=== PATIENT | female | born 1945 | race Asian ===

== ENCOUNTER → 2016-07-19 | Outpatient (CLI) | payer OTHER, MEDICAID ==
--- NOTE | 2016-07-19 17:49 | DX ---
DEXA Bone Mineral Densitometry Clinical Indications: Follow-up osteoporosis. Postmenopausal, parent with hip fracture, personal hist ory of left wrist fracture Comparison: 10/11/2013 Technique: Bone Mineral Densitometry (BMD) by Dual Energy X-Ray Absorptiometry (DEXA) was performed utilizing the Unified Color scanner. The lumbar spine was evaluated in the AP projection. The bilat eral hips and forearm were evaluated in the AP projection. Vertebral fracture assessment was also pe rformed. AP Lumbar Spine: The L2, L3 and L4 vertebral bodies were evaluated. There is a stable L1 compressi on fracture which is excluded. BMD: 0.832 gm/cm2 T-score: -3.1 SD Z-score: -0.6 SD No significant change. AP Left Hip: Total BMD: 0.603 gm/cm2 T-score: -3.2 SD Z-score: -1.0 SD No significant change. AP Right Hip: Neck BMD: 0.554 gm/cm2 T-score: -3.5 SD Z-score: - 1.1 SD No significant change. AP right Forearm, 06/12: BMD: 0.399 gm/cm2 T-score: -5.4 SD Z-score: -3.3 SD Vertebral Fracture Assessment: There is a chronic severe compression deformity of L1 and moderate co mpression of T9. No new compressions have developed.. No prevertebral aortic calcification, significa nt marginal bone spurring, facet arthrosis, or intrinsic vertebral body sclerosis that would effect the accuracy of the lumbar spine BMD measurement. Conclusion: Considering the lowest measured site, the patient has severe osteoporosis. Since the for earm is the lowest measured site, it would be worthwhile to exclude hyperparathyroidism. The ten year FRAX risk for any major osteoporotic fracture , which excludes the risk for a wrist frac ture, is 20.2% and for a hip fracture is 9.1%. According to the recommendations of the National Osteo porosis Foundation, this patient would be a good candidate for bone strengthening pharmacologic inter vention. Consider excluding secondary metabolic causes of bone loss (reported to be present in as many as 30% of patients with normal Z scores). Basic laboratory evaluation might include blood chemistries (calci um, phosphorus, alkaline phosphatase, liver function tests, creatinine, total protein), complete bloo d count, serum 25-OH- vitamin D3 level, 24-hour urine calcium, serum TSH and serum PTH. Targeted l aboratory testing based on individual patient circumstances might include serum electrophoresis (SPEP or UPEP), anti-tissue transglutaminase antibody levels (celiac disease) , serum bone specific alkal ine phosphatase, bone turnover markers (urine, serum) or fibroblast growth factor 23 (FGF 23)(evaluat e for unexplained osteomalacia). If secondary causes are excluded, then consider initiating treatment with a bisphosphonate (such as F osamax, Actonel or Boniva). If the patient is unable to use an oral bisphosphonate, another agent suc h as IV bisphosphonates (Boniva or Reclast), teriparatide (Forteo), a selective estrogen receptor mo dulator (Evista) or Denosumab ( anti RANKL monoclonal antibody) might be considered. If antiresorptive therapy is initiated and if clinically indicated, consider obtaining a baseline and 3 month followup bone resorption marker (NTX, CTX, TRAP5b or Pyridinoline, deoxypyridinoline) to mon itor the therapeutic effect. Supplementing an insufficient diet to achieve total intakes of 1500 mg calcium and 800 International Units of vitamin D daily should be considered. Osteoporosis prevention and treatment begins by modify ing risk factors. The patient should be encouraged to participate in a regular exercise program that includes weightbearing and muscle strengthening regimens, as is clinically appropriate. Recommend follow-up DEXA in one year to assess the efficacy of pharmacologic intervention and/or joan ection of appropriate secondary cause.
== END ==
LOC: BRMIMAGING 10:40
PROVIDERS: ATTEND Family Medicine
DX: M81.0 Age-related osteoporosis without current pathological fracture (principal)

== ENCOUNTER 2016-09-05 17:48 | Emergency (ER) | payer OTHER, MEDICAID ==
[2016-09-05 18:08] VITALS: RESP 16; TEMP 97.5; O2SAT 94
--- NOTE | 2016-09-05 18:34 | UCPHY ---
H & P Time Seen by Provider: 09/05/16 17:57 Patient Type: Established HPI/ROS: This patient was hiking and no EB with her son 2 days prior to arrival and fell landing on her left shoulder. She reports moderate pain since then with significant ecchymosis extending from the proximal humerus to the distal humerus and also toward the pectoralis anteriorly. She is unable to abduct her arm since the injury occurred. Pain increases with movement. No other exacerbating or alleviating factors except for partial improvement with ibuprofen. ROS: She denies any other associated injuries from fall. No head injury, no neck or back pain. No chest or belly pain. No numbness to the affected extremity and 7 point ROS is otherwise negative. Past Medical/Surgical History: Otherwise healthy except for hypercholesterolemia Smoking Status: Never smoked Physical Exam: Physical Exam Vital signs are normal. General: No acute distress HEENT: Atraumatic. Eyes: Pupils equal and react to light. Extraocular motions are intact. Neck: Nontender Back: Nontender Lungs: Clear to auscultation bilaterally. No chest wall tenderness Cardiac: Regular rate and rhythm with no murmur gallop rub Pulses are 2+ and symmetric in the affected extremity. Extremities: Atraumatic normal except for left shoulder Left shoulder: Patient has tenderness and swelling the proximal humerus with ecchymosis extends down to the distal humerus and to the pectoralis anteriorly. No significant pectoralis tenderness. No clavicular or AC joint tenderness. She has significant limitation range of motion of the shoulder due to pain. No gross deformity. No elbow tenderness forearm tenderness or wrist tenderness. Skin: No rash or pallor. Neuro: Alert and oriented x3 with no sensorimotor deficits in the affected extremity Initial differential diagnosis: Proximal humerus fracture, acromial fracture, rotator cuff tear Constitutional: Initial Vital Signs Temperature (C) 36.4 C 09/05/16 18:05 Heart Rate 78 09/05/16 18:05 Respiratory Rate 16 09/05/16 18:05 Blood Pressure 181/80 H 09/05/16 18:05 O2 Sat (%) 94 09/05/16 18:05 O2 Delivery Mode Room Air Allergies/Adverse Reactions: No Known Allergies Allergy (Verified 09/05/16 18:04) Home Medications: Medication Instructions Recorded Fish Oil 05/21/16 Supplements 05/21/16 Ibuprofen 09/05/16 SIMVASTATIN 09/05/16 MDM/Departure - MDM Diagnostics: Shoulder x-ray: Greater tuberosity fracture with minimal displacement by my interpretation, confirmed by radiologist ED Course/Re-evaluation: Patient is placed in a sling. I counseled regarding her greater tuberosity fracture. She will follow up with Orthopedics for further evaluation sometime within the next 5-[address] Mandel will follow up with him Discussion: An isolated fracture without evidence of neurovascular compromise or other complications. No other significant injuries are noted from her fall. - Depart Disposition: Home, Routine, Self-Care Clinical Impression: Fracture of greater tuberosity of humerus Qualifiers: Encounter type: initial encounter Fracture type: closed Fracture alignment: nondisplaced Laterality: left Qualified Code(s): S42.255A - Nondisplaced fracture of greater tuberosity of left humerus, initial encounter for closed fracture Condition: Good Instructions: Arm Fracture in Adults (ED) Additional Instructions: Diagnosis: Greater tuberosity fracture of humerus Plan: Sling Ice Tylenol Follow up with Dr. Manedl your orthopedic doctor Referrals: Ana Hernandez MD [Primary Care Provider] - As per Instructions Deacon Mandel MD [Medical Doctor] - As per Instructions - PQRS PQRS Measurement: 134: Depression screening and followup, PRIME MD-PHQ2 (12 years and older) Over the last 2 weeks, how often have you been bothered by any of the following problems? 1. Feeling down, depressed, or hopeless? 2. Little interest or pleasure in doing things? Patient answered no to both 1 and 2 130: Documentation of medications. Reviewed all patient medications, doses, route and frequency. 226: Do you smoke? [No.] 47: 65 and older: Advanced care planning. Patient has an advanced directive 51: 18 years old and older with diagnosis of COPD, spirometry performance. NA 52: 18 years old and older with COPD and symptoms of COPD or FEV1<60% predicted prescribed a B Agonist. NA
[2016-09-05 18:45] VITALS: BP 148/98; PULSE 76
== END 2016-09-05 18:47 | disposition home or self-care (01) ==
LOC: CED 17:48
DX: S42.255A Nondisplaced fracture of greater tuberosity of left humerus, initial encounter for closed fracture (principal); W01.0XXA Fall on same level from slipping, tripping and stumbling without subsequent striking against object, initial encounter; Y93.01 Activity, walking, marching and hiking; E78.00 Pure hypercholesterolemia, unspecified
CPT/HCPCS: 73030; G0463; 99214-PO

== ENCOUNTER → 2016-09-11 | Outpatient (CLI) | payer OTHER, MEDICAID | LOC: CIMAGING 15:13 | PROVIDERS: ATTEND Orthopaedic Surgery | DX: S42.252D Displaced fracture of greater tuberosity of left humerus, subsequent encounter for fracture with routine healing (principal); S42.212A Unspecified displaced fracture of surgical neck of left humerus, initial encounter for closed fracture | CPT/HCPCS: 73200-PO ==

== ENCOUNTER 2016-09-14 13:25 | Day surgery (SDC) | payer OTHER, MEDICAID ==
[2016-09-14] MEDS ORDERED: LR 1,000 ML IV ONE (14:28)
[2016-09-14] MEDS ORDERED: LIDOCAINE 1% 5 ML SDV ID PRN (14:28)
[2016-09-14] MEDS ORDERED: ceFAZolin 2 GM/DEXTROSE 100 ML IV ONE (14:30)
[2016-09-14] MEDS ORDERED: SKIN ADHESIVE (DERMABOND) 1 EACH TP ONE (14:39)
[2016-09-14] MEDS ORDERED: BUPIVACAINE/EPI 0.25% 30 ML SDV ONE (14:40)
[2016-09-14] MEDS ORDERED: POLYMYXIN B SULFATE 500,000 UNIT/10 ML SYR IRR ONE (14:40)
[2016-09-14] MEDS ORDERED: BACITRACIN 50,000 UNITS/10 ML SYR IRR ONE (14:40)
[2016-09-14] MEDS ORDERED: fentaNYL 100 MCG/2 ML INJ ONE (14:45)
[2016-09-14] MEDS ORDERED: PROPOFOL 200 MG/20 ML VIAL ONE (14:47)
[2016-09-14] MEDS ORDERED: ONDANSETRON 4 MG/2 ML VIAL ONE (15:40)
[2016-09-14] MEDS ORDERED: ROPIVACAINE HCL 150 MG/30 ML INJ ONE (15:40)
[2016-09-14] MEDS ORDERED: DEXAMETHASONE 4 MG/ML VIAL ONE (15:40)
--- NOTE | 2016-09-14 19:30 | GOP ---
[f rep st] OPERATIVE REPORT DATE OF OPERATION: 09/14/2016 SURGEON: Deacon Mandel MD CHAINSTITCH SEAT JOINER: Jelani Powers SA ANESTHESIA: General with block. PREOPERATIVE DIAGNOSIS: Left 3-part proximal humerus fracture. POSTOPERATIVE DIAGNOSIS: Left 3-part proximal humerus fracture. PROCEDURE PERFORMED: 1. Open reduction, internal fixation left 3-part proximal humerus fracture. 2. Rotator cuff repair. FINDINGS: SPECIMENS: None. ESTIMATED BLOOD LOSS: 50 mL. INDICATIONS: This is a 71-year-old female who fell while hiking. She came into my clinic. She had a displaced greater tuberosity fracture, a nondisplaced surgical neck fracture. I defined this bet ter with a CT scan. I discussed operative treatment based on the retraction and external rotation o f her greater tuberosity fracture. I felt would likely have decreased strength, shoulder function, impingement if this was not fixed. We discussed risks and benefits of both operative and nonoperati ve treatment including nerve injury, wound complications, loss of fixation causing a fracture, valerio nued pain, blood loss. She elected to proceed. Informed consent was obtained. All questions were answered. She was marked preoperatively. DESCRIPTION OF PROCEDURE: She was taken to the operating suite. Anesthesia and block were administ ered per Anesthesia. She was given 1 g of Ancef. She was positioned, sterilely prepped draped in n ormal fashion. A time-out was performed verifying site, side, location. And all were in agreement o n the team. The procedure was begun with an anterior incision on the shoulder. I performed a one-third deltoid splitting approach and protected the axillary nerve. I did not detach the deltoid distally. I was able to mobilize under the deltoid and find a large greater tuberosity fragment. Her neck fracture remained nondisplaced. I debrided this and I was able to mobilize this by placing traction sutures around the rotator cuff and then mobilized this into place. I placed a plate over this and then hel d this with a K-wire and then placed a cortical screw distally in the plate to bring the plate to jaya ne and buttress the fracture into place. I checked this radiographically and then I placed cortical screws distally and placed locking screws proximally in the fracture site and in the humeral head, fixing both the greater tuberosity and the neck fracture. I then attached the rotator cuff fragment s. I stitched this to the plate, completing the rotator cuff repair portion. The wound was then th oroughly irrigated. Final x-rays were taken, showing good plate placement and fracture reduction. No impingement. She was irrigated, closed with 0 Vicryl, 2-0 Vicryl, 3-0 Monocryl, and Dermabond. She was taken to PACU in stable condition. COMPLICATIONS: None. DRAINS: None. DISPOSITION: Stable. /[id number]/MODL
== END 2016-09-14 19:25 | disposition home or self-care (01) ==
LOC: FSGY 13:25
PROVIDERS: ATTEND Orthopaedic Surgery
PROC: 0PSD04Z Reposition Left Humeral Head with Internal Fixation Device, Open Approach (ICD-10-PCS; principal; 2016-09-14 14:45)
DX: S42.232A 3-part fracture of surgical neck of left humerus, initial encounter for closed fracture (principal); W01.10XA Fall on same level from slipping, tripping and stumbling with subsequent striking against unspecified object, initial encounter; Y93.01 Activity, walking, marching and hiking
CPT/HCPCS: 23615; C1769; C1713; J0690; J1100; J2405; J2704; J2795; J3010

== ENCOUNTER 2018-08-17 19:31 | Emergency (ER) | payer OTHER, MEDICAID ==
[2018-08-17] MEDS ORDERED: NS 1,000 ML IV ONE (20:14)
[2018-08-17] MEDS ORDERED: ONDANSETRON 4 MG/2 ML VIAL IVP ONE (20:15)
--- NOTE | 2018-08-17 21:33 | EDPHY ---
H & P Stated Complaint: Epigastric, and umbilical abdo pain since 1400hrs. Time Seen by Provider: 08/17/18 19:41 HPI/ROS: 73-year-old female presents complaining of epigastric, umbilical and lower abdominal pain. She states she ate a large turnip at lunch time and then developed a severe stomach ache, she had some nausea, no vomiting, no diarrhea She denies difficulty urinating. No fever or chills, no chest pain and no sob. she is a former smoker , quit 10 years ago. Review of systems As per HPI General no fever no chills no weakness HEENT no eye pain no eye discharge. No eye redness, no sore throat Respiratory no cough, no shortness of breath Cardiac no chest pain, no peripheral edema GI positive abdominal pain, no diarrhea, no constipation, positive nausea, no vomiting no flank pain, no hematuria, no dysuria Musculoskeletal no myalgias, no joint pain Heme no easy bruising, no easy bleeding Endo no polyuria, no polydipsia Skin no rashes, no pruritus Neuro no syncope, no dizziness, no headaches Psych is no suicidal ideation, no homicidal ideation Source: Patient, Family Exam Limitations: No limitations - Personal History Current Tetanus/Diphtheria Vaccine: Unsure Current Tetanus Diphtheria and Acellular Pertussis (TDAP): Unsure - Medical/Surgical History Hx Asthma: No Hx Chronic Respiratory Disease: No Hx Diabetes: No Hx Cardiac Disease: Yes Hx Renal Disease: No Hx Cirrhosis: No Hx Alcoholism: No Hx HIV/AIDS: No Hx Splenectomy or Spleen Trauma: No Other PMH: med hx-cholesterol,glaucoma and cataract, hypothyroidism. surg- lump -scapula area,cataract,L shoulder - Family History Significant Family History: No pertinent family hx - Social History Smoking Status: Former smoker Alcohol Use: None Drug Use: None - Physical Exam Exam: 73-year-old female alert and oriented in moderate distress secondary to epigastric and periumbilical pain, afebrile Nontoxic appearance Patient initially hypertensive 196/90 Petite HEENT atraumatic normocephalic, extraocular muscles intact, anicteric Oropharynx negative for erythema negative exudate, tolerating her own secretions Neck supple no meningismus Lungs clear to auscultation bilaterally, no wheezing Heart regular rate and rhythm without murmur rub or gallop Abdomen nondistended , bowel sounds present, periumbilical tenderness and suprapubic tenderness, no guarding no rebound no pulsatile mass Back no CVA tenderness, no step-offs, no spinal tenderness Extremities no cyanosis clubbing or edema Neuro alert and oriented, no focal deficits Constitutional: Initial Vital Signs Temperature (C) 36.6 C 08/17/18 19:53 Heart Rate 73 08/17/18 19:53 Respiratory Rate 16 08/17/18 19:53 Blood Pressure 196/90 H 08/17/18 19:53 O2 Sat (%) 96 08/17/18 19:53 O2 Delivery Mode Room Air O2 (L/minute) 2 Allergies/Adverse Reactions: No Known Allergies Allergy (Verified 08/17/18 19:52) Home Medications: Medication Instructions Recorded SIMVASTATIN 09/05/16 Levothyroxine 08/17/18 Medical Decision Making - Diagnostics Imaging Results: Imaging Impressions Abdomen CT 08/17/18 21:28 Impression: 1. No aortic aneurysm or evidence for appendicitis. 2. Distended stomach and small bowel with reflux into at least the distal esophagus. Suspect early or partial small bowel obstruction, possibly related to an adhesion. This patient would likely benefit from an NG tube. 3. Distended urinary bladder. 4. Triple-vessel coronary artery disease. 5. Possible basilar interstitial lung disease (NSIP). If clinically indicated this patient might benefit from a noncontrast high-resolution chest CT. 6. Severe osteoporosis. A DEXA scan in July 2016 demonstrated osteoporosis worst in the forearm. Results discussed with Allegra Schrader MD at 22:27 PM. General information for patients regarding this examination can be found at [email or web address]. If you have questions or comments about this report, please contact me at (hospital) or [phone] (cell). Abdomen X-Ray 08/17/18 22:30 Impression: 1. Early or partial small bowel obstruction. 2. Suspicious for basilar interstitial lung disease. 3. Distended urinary bladder. ED Course/Re-evaluation: Patient seen and evaluated for abdominal pain. IV established, labs drawn CBC within normal limits CMP within normal limits Lactate negative ekg nsr, no ischemic changes ct scan possible partial small bowel obstruction interstitial lung dz, CAD, scoliosis Pt given fluids, ondansetron 4mg ivp, morphine 2 mg ivp Imp\ Despite reading of possible small bowel obstruction, pt feels completely improved and is refusing to be admitted for observation. Abdominal pain Plan dc home f/u dr caceres this week extensive education given to the family and patient on reasons to return emergently specifically, pain, vomiting, fever, difficulty breathing. Differential Diagnosis: Differential diagnosis considered but not limited to: A did the serrated gastroenteritis, enteritis, appendicitis, bowel obstruction, diverticulitis, pancreatitis, cholecystitis - Data Points Laboratory Results: 08/17/18 08/17/18 08/17/18 21:04 20:51 20:49 POC Sodium 144 mEq/L mEq/L (135-145) POC Potassium 3.6 mEq/L mEq/L (3.3-5.0) POC Chloride 104.0 mEq/L mEq/L (97-110) POC Total CO2 27 mEq/L mEq/L (22-31) POC BUN 9 mg/dL mg/dL (7-23) POC Creatinine 0.7 mg/dL mg/dL (0.6-1.0) POC Glucose 140 mg/dL H mg/dL (70-100) POC Lactic Acid Francisco 1.8 mmol/L mmol/L (0.7-2.1) POC Calcium 10.3 mg/dL mg/dL (8.5-10.4) POC Total Bilirubin 0.6 mg/dL mg/dL (0.1-1.4) POC AST 42 IU/L IU/L (14-46) POC ALT 22 IU/L IU/L (9-52) POC Alk Phosphatase 51 IU/L IU/L (38-126) POC Troponin I 0.00 ng/mL ng/mL (0.00-0.08) POC Total Protein 8.5 g/dL H g/dL (6.3-8.2) POC Albumin 4.3 g/dL g/dL (3.5-5.0) Lipase 08/17/18 20:40 POC Sodium POC Potassium POC Chloride POC Total CO2 POC BUN POC Creatinine POC Glucose POC Lactic Acid Francisco POC Calcium POC Total Bilirubin POC AST POC ALT POC Alk Phosphatase POC Troponin I POC Total Protein POC Albumin Lipase 68 IU/L IU/L (23-300) Medications Given: Discontinued Medications Sodium Chloride (Ns) 1,000 mls @ 0 mls/hr IV ONCE ONE PRN Reason: Wide Open Stop: 08/17/18 20:15 Last Admin: 08/17/18 20:52 Dose: 1,000 mls Morphine Sulfate (Morphine) 2 mg IVP EDNOW ONE Stop: 08/17/18 20:16 Last Admin: 08/17/18 20:53 Dose: 2 mg Ondansetron HCl (Zofran) 4 mg IVP EDNOW ONE Stop: 08/17/18 20:16 Last Admin: 08/17/18 20:53 Dose: 4 mg Point of Care Test Results: CBC CBC Collection Date 08/17/18 CBC Collection Time 20:40 WBC 5.59 RBC 4.73 HGB 14.2 HCT 44 PLT 139 Neut # 3.27 Neut 58.4 LYMPH # 1.82 LYMPH 32.6 MCV 93 Chemistry 08/17/18 08/17/18 21:04 20:51 POC Sodium 144 mEq/L mEq/L (135-145) POC Potassium 3.6 mEq/L mEq/L (3.3-5.0) POC Chloride 104.0 mEq/L mEq/L (97-110) POC Total CO2 27 mEq/L mEq/L (22-31) POC BUN 9 mg/dL mg/dL (7-23) POC Creatinine 0.7 mg/dL mg/dL (0.6-1.0) POC Glucose 140 mg/dL H mg/dL (70-100) POC Calcium 10.3 mg/dL mg/dL (8.5-10.4) POC Total Bilirubin 0.6 mg/dL mg/dL (0.1-1.4) POC AST 42 IU/L IU/L (14-46) POC ALT 22 IU/L IU/L (9-52) POC Alk Phosphatase 51 IU/L IU/L (38-126) POC Troponin I 0.00 ng/mL ng/mL (0.00-0.08) POC Total Protein 8.5 g/dL H g/dL (6.3-8.2) POC Albumin 4.3 g/dL g/dL (3.5-5.0) Blood Gas/Lactic Acid-Venous 08/17/18 20:49 POC Lactic Acid Francisco 1.8 mmol/L mmol/L (0.7-2.1) Urine Dip Collection Date 08/17/18 Collection Time 23:32 Specific Hessel (1.002-1.030) 1.010 PH (5.0-7.5) 6.0 Leukocytes (Negative) Trace Nitrites (Negative) Negative Protein (Negative) Negative Glucose (Negative) Negative Ketones (Negative) Negative Urobilnogen (0.2-1.0 EU) 0.2 Bilirubin (Negative) Negative Blood (Negative) Trace Departure - Departure Disposition: Home, Routine, Self-Care Clinical Impression: Abdominal pain Condition: Good Instructions: Gas and Bloating (ED), Abdominal Pain (ED) Referrals: Ana Caceres MD [Primary Care Provider] - As per Instructions
[2018-08-17] MEDS ORDERED: IOPAMIDOL (ISOVUE-300) 100 ML BTL ONE (21:44)
[2018-08-17 23:42] VITALS: BP 128/73
--- NOTE | 2018-08-19 16:31 | CPEKG ---
Test Reason : OPEN Blood Pressure : / mmHG Vent. Rate : 073 BPM Atrial Rate : 073 BPM P-R Int : 180 ms QRS Dur : 076 ms QT Int : 417 ms P-R-T Axes : 057 -25 046 degrees QTc Int : 460 ms Sinus rhythm Borderline left axis deviation Low voltage, extremity leads Abnormal R-wave progression, early transition Confirmed by Allegra Schrader ([id number]) on 08/19/2018 4:31:05 PM Referred By: Allegra Schrader Confirmed By:Allegra Schrader
== END 2018-08-17 23:59 | disposition home or self-care (01) ==
LOC: CED 19:31
DX: R10.13 Epigastric pain (principal); R11.0 Nausea; K56.609 Unspecified intestinal obstruction, unspecified as to partial versus complete obstruction; N32.89 Other specified disorders of bladder; E86.9 Volume depletion, unspecified
CPT/HCPCS: 74022; 74177; 93005; 96361; 96374; 96375; 99285; J2270; J2405; Q9967; 80053-ER; 83605-ER; 84484-ER

== ENCOUNTER 2018-08-18 11:43 | Inpatient (IN) | payer OTHER, MEDICAID ==
[2018-08-18] MEDS ORDERED: ONDANSETRON 4 MG/2 ML VIAL IVP ONE (12:00)
[2018-08-18] MEDS ORDERED: NS 1,000 ML IV ONE (12:00)
--- NOTE | 2018-08-18 12:00 | EDPHY ---
H & P Stated Complaint: abd pain Time Seen by Provider: 08/18/18 11:57 HPI/ROS: HPI: This is a 73-year-old female who presents with Chief Complaint: Abdominal pain Location: Epigastric, periumbilical Quality: Pain Duration: Since yesterday Signs and Symptoms: no fever, + nausea, no vomiting, no hematemesis, no blood in stool, + abdominal bloating, no diarrhea, no back pain, no urinary symptoms, no vaginal bleeding/discharge, no indigestion, no chest pain, no shortness of breath, no BM in several days Timing: Acute, constant Severity: Moderate Context: Patient presents to the emergency room for continued epigastric and periumbilical abdominal pain accompanied by nausea. She reports that yesterday she ate a large turn up and started to feel abdominal bloating and pain. She was seen at the urgent care and abdominal x-ray showed earlier partial small- bowel obstruction. CT was performed and showed distended stomach and small bowel with reflux into at least the distal esophagus. Suspect early or partial small-bowel obstruction, possibly related to adhesion. Patient was recommended to be admitted to the hospital but politely refused. She went home late last night and had continued pain. She presents to the emergency room today with her daughter. No episodes of vomiting, fever. No bowel movement in several days. She complains of nausea. Modifying Factors: None Comment: ROS: A comprehensive 10 system review of systems is otherwise negative aside from elements mentioned in the history of present illness. MEDICAL/SURGICAL/SOCIAL HISTORY: med hx-cholesterol,glaucoma and cataract, hypothyroidism. surg- lump-scapula area,cataract,L shoulder Social history: Retired. Former smoker. Family history noncontributory. CONSTITUTIONAL: Petite, elderly female, awake and alert, no obvious distress HEENT: Atraumatic and normocephalic, PERRL, EOMI. Nares patent; no rhinorrhea; no nasal mucosal edema. Tympanic membranes clear. Oropharynx clear, no exudate and moist pink mucosa. Airway patent. No lymphadenopathy. No meningismus. Cardiovascular: Normal S1/S2, regular rate, regular rhythm, without murmur rub or gallop. PULMONARY/CHEST: Symmetrical and nontender. Clear to auscultation bilaterally. Good air movement. No accessory muscle usage. ABDOMEN: Soft, nondistended, hyperactive bowel sounds heard right upper quadrant and left upper quadrant but no bowel sounds heard right lower quadrant and left lower quadrant. moderate generalized tenderness, no rebound, + guarding, no peritoneal signs, no masses or organomegaly. No CVAT. EXTREMITIES: 2/2 pulses, strength 5/5, no deformities, no clubbing, no cyanosis or edema. NEUROLOGICAL: no focal neuro deficits. GCS 15. SKIN: Warm and dry, no erythema. no rash. Good capillary refill. Source: Patient, Family Exam Limitations: Language barrier - Personal History Current Tetanus/Diphtheria Vaccine: Unsure Current Tetanus Diphtheria and Acellular Pertussis (TDAP): Unsure - Medical/Surgical History Hx Asthma: No Hx Chronic Respiratory Disease: No Hx Diabetes: No Hx Cardiac Disease: Yes Hx Renal Disease: No Hx Cirrhosis: No Hx Alcoholism: No Hx HIV/AIDS: No Hx Splenectomy or Spleen Trauma: No Other PMH: med hx-cholesterol,glaucoma and cataract, hypothyroidism. surg- lump -scapula area,cataract,L shoulder - Social History Smoking Status: Former smoker Constitutional: Initial Vital Signs Temperature (C) 36.7 C 08/18/18 11:50 Heart Rate 81 08/18/18 11:50 Respiratory Rate 16 08/18/18 11:50 Blood Pressure 114/70 08/18/18 11:50 O2 Sat (%) 92 08/18/18 11:50 O2 Delivery Mode Room Air Allergies/Adverse Reactions: No Known Allergies Allergy (Verified 08/18/18 11:49) Home Medications: Medication Instructions Recorded Simvastatin [Zocor] 40 mg PO DAILY18 09/05/16 Levothyroxine [Synthroid 25 mcg 25 mcg PO DAILY06 08/17/18 (*)] Cholecalciferol Vit D3 [Vitamin D3 1,000 units PO DAILY 08/18/18 (*)] Multivitamins [Multivitamin (*)] 1 each PO DAILY 08/18/18 [place]-3 Fatty Acids [Fish Oil 1000 1,000 mg PO DAILY 08/18/18 mg (*)] Medical Decision Making - Diagnostics Imaging Results: Imaging Impressions Abdomen X-Ray 08/18/18 12:00 Impression: Improvement. ED Course/Re-evaluation: Vital signs reviewed and stable upon arrival. Placed on workforce development specialist. Made NPO status. IV access, laboratory studies, repeat KUB ordered Given 1 L normal saline and IV Zofran 4 mg Abdominal x-ray my read when compared to the 1 taken last night shows improvement. Patient politely refusing NG-tube placement. 1240: Labs reviewed. Lactic acid 1.0, No signs of leukocytosis/anemia/ platelet dysfunction/SRIRAM/elevated LFTs/electrolyte imbalance/pancreatitis. ED decision to consult for admission partial small-bowel obstruction. Spoke with Mallika who kindly agrees to admit patient under the care of Dr. Garsia. This patient was seen under the supervision of my secondary supervising physician. I evaluated care for this patient with attending. Discussed this patient with Dr. Perez. Differential Diagnosis: Abdominal pain including but not limited to small-bowel obstruction, appendicitis, cholecystitis, gastritis and urinary tract infection. - Data Points Laboratory Results: Laboratory Results 08/18/18 12:10 08/18/18 12:10 08/18/18 08/18/18 08/18/18 12:10 12:10 12:10 WBC 8.89 10^3/uL 10^3/uL (3.80-9.50) RBC 4.19 10^6/uL 10^6/uL (4.18-5.33) Hgb 12.6 g/dL g/dL (12.6-16.3) Hct 39.2 % % (38.0-47.0) MCV 93.6 fL fL (81.5-99.8) MCH 30.1 pg pg (27.9-34.1) MCHC 32.1 g/dL L g/dL (32.4-36.7) RDW 13.3 % % (11.5-15.2) Plt Count 178 10^3/uL 10^3/uL (150-400) MPV 11.8 fL H fL (8.7-11.7) Neut % (Auto) 68.0 % % (39.3-74.2) Lymph % (Auto) 26.3 % % (15.0-45.0) [place] % (Auto) 4.6 % % (4.5-13.0) Eos % (Auto) 0.8 % % (0.6-7.6) Baso % (Auto) 0.1 % L % (0.3-1.7) Nucleat RBC Rel Count 0.0 % % (0.0-0.2) Absolute Neuts (auto) 6.04 10^3/uL 10^3/uL (1.70-6.50) Absolute Lymphs (auto) 2.34 10^3/uL 10^3/uL (1.00-3.00) Absolute Monos (auto) 0.41 10^3/uL 10^3/uL (0.30-0.80) Absolute Eos (auto) 0.07 10^3/uL 10^3/uL (0.03-0.40) Absolute Basos (auto) 0.01 10^3/uL L 10^3/uL (0.02-0.10) Absolute Nucleated RBC 0.00 10^3/uL 10^3/uL (0-0.01) Immature Gran % 0.2 % % (0.0-1.1) Immature Gran # 0.02 10^3/uL 10^3/uL (0.00-0.10) VBG Lactic Acid 1.0 mmol/L mmol/L (0.7-2.1) Sodium 138 mEq/L mEq/L (135-145) Potassium 4.5 mEq/L mEq/L (3.5-5.2) Chloride 108 mEq/L mEq/L (97-110) Carbon Dioxide 23 mEq/l mEq/l (22-31) Anion Gap 7 mEq/L mEq/L (6-14) BUN 9 mg/dL mg/dL (7-23) Creatinine 0.7 mg/dL mg/dL (0.6-1.0) Estimated GFR > 60 Glucose 110 mg/dL H mg/dL (70-100) Calcium 8.8 mg/dL mg/dL (8.5-10.4) Total Bilirubin 0.8 mg/dL mg/dL (0.1-1.4) Conjugated Bilirubin 0.4 mg/dL mg/dL (0.0-0.5) Unconjugated Bilirubin 0.4 mg/dL mg/dL (0.0-1.1) AST 42 IU/L IU/L (14-46) ALT 23 IU/L IU/L (9-52) Alkaline Phosphatase 52 IU/L IU/L (38-126) Total Protein 7.8 g/dL g/dL (6.3-8.2) Albumin 4.4 g/dL g/dL (3.5-5.0) Lipase 37 IU/L IU/L (23-300) Medications Given: Discontinued Medications Sodium Chloride (Ns) 1,000 mls @ 0 mls/hr IV EDNOW ONE; Wide Open PRN Reason: Protocol Stop: 08/18/18 12:01 Last Admin: 08/18/18 12:28 Dose: 1,000 mls Ondansetron HCl (Zofran) 4 mg IVP EDNOW ONE Stop: 08/18/18 12:01 Last Admin: 08/18/18 12:28 Dose: 4 mg Departure - Departure Disposition: [facility] Inpatient Acute Clinical Impression: Small bowel obstruction Condition: Fair
[2018-08-18 12:29] LABS: PLATELET COUNT 178 10^3/uL (150-400)
[2018-08-18] MEDS ORDERED: ONDANSETRON DISINTEGRATING 4 MG TAB PO PRN (14:29)
[2018-08-18] MEDS ORDERED: ACETAMINOPHEN 325 MG TAB PO PRN (14:29)
[2018-08-18] MEDS ORDERED: ONDANSETRON 4 MG/2 ML VIAL IVP PRN (14:29)
[2018-08-18] MEDS: NS 1,000 ML IV SCH ×2 (14:50→22:56)
--- NOTE | 2018-08-18 17:25 | PDGENHP ---
History and Physical - Chief Complaint Abdominal Pain - History of Present Illness Marion Olivera is a 73 yo F with a PMHx of Hypothyroidism, HLD who presents to [facility] for abdominal pain. She was seen in [facility] yesterday for epigastric and umbilical pain. She notes she ate a large turnip for lunch and developed a severe abdominal pain. She reports some nausea, but not vomiting or diarrhea. Her last BM was yesterday AM which was soft and normal per patient. During her ED visit yesterday, Abd XR and CT AP were performed which showed likely early/ partial SBO. Admission was recommended to patient however was refused at that time. She continued to have abdominal pain today so family brought to ED. She reports no nausea during time of evaluation. She also denies chest pain, SOB, palpitations, edema, f/c. She notes she has no hx of abdominal/pelvic surgeries. History Information - Allergies/Home Medication List Allergies/Adverse Reactions: No Known Allergies Allergy (Verified 08/18/18 11:49) Home Medications: Simvastatin [Zocor] 40 mg PO DAILY18 09/05/16 [Last Taken 08/17/18] Levothyroxine [Synthroid 25 mcg (*)] 25 mcg PO DAILY06 08/17/18 [Last Taken 03/28] Cholecalciferol Vit D3 [Vitamin D3 (*)] 1,000 units PO DAILY 08/18/18 [Last Taken 08/17/18] Multivitamins [Multivitamin (*)] 1 each PO DAILY 08/18/18 [Last Taken 08/17/18] [place]-3 Fatty Acids [Fish Oil 1000 mg (*)] 1,000 mg PO DAILY 08/18/18 [Last Taken 08/17/18] I have personally reviewed and updated: family history, medical history, social history, surgical history - Past Medical History hyperlipidemia Additional medical history: Hypothyroidism - Surgical History Reports: no pertinent surgical hx - Family History Positive for: non-pertinent - Social History Smoking Status: Former smoker Review of Systems Review of Systems: ROS: 10pt was reviewed & negative except for what was stated in HPI & below Physical Exam Physical Exam: Temp Pulse Resp BP Pulse Ox 36.9 C 66 16 103/51 L 92 08/18/18 15:24 08/18/18 15:24 08/18/18 15:24 08/18/18 15:24 08/18/18 15:24 Constitutional: no apparent distress Eyes: PERRL Ears, Nose, Mouth, Throat: moist mucous membranes Cardiovascular: regular rate and rhythym Respiratory: no respiratory distress Gastrointestinal: normoactive bowel sounds, tenderness (mild in epigastric area) , distension, No guarding, No rebound Skin: warm Neurologic: AAOx3 Psychiatric: interacting appropriately Lab Data & Imaging Review 08/18/18 12:10 08/18/18 12:10 WBC 8.89 10^3/uL (3.80-9.50) 08/18/18 12:10 RBC 4.19 10^6/uL (4.18-5.33) 08/18/18 12:10 Hgb 12.6 g/dL (12.6-16.3) 08/18/18 12:10 Hct 39.2 % (38.0-47.0) 08/18/18 12:10 MCV 93.6 fL (81.5-99.8) 08/18/18 12:10 MCH 30.1 pg (27.9-34.1) 08/18/18 12:10 MCHC 32.1 g/dL (32.4-36.7) L 08/18/18 12:10 RDW 13.3 % (11.5-15.2) 08/18/18 12:10 Plt Count 178 10^3/uL (150-400) 08/18/18 12:10 MPV 11.8 fL (8.7-11.7) H 08/18/18 12:10 Neut % (Auto) 68.0 % (39.3-74.2) 08/18/18 12:10 Lymph % (Auto) 26.3 % (15.0-45.0) 08/18/18 12:10 [place] % (Auto) 4.6 % (4.5-13.0) 08/18/18 12:10 Eos % (Auto) 0.8 % (0.6-7.6) 08/18/18 12:10 Baso % (Auto) 0.1 % (0.3-1.7) L 08/18/18 12:10 Nucleat RBC Rel Count 0.0 % (0.0-0.2) 08/18/18 12:10 Absolute Neuts (auto) 6.04 10^3/uL (1.70-6.50) 08/18/18 12:10 Absolute Lymphs (auto) 2.34 10^3/uL (1.00-3.00) 08/18/18 12:10 Absolute Monos (auto) 0.41 10^3/uL (0.30-0.80) 08/18/18 12:10 Absolute Eos (auto) 0.07 10^3/uL (0.03-0.40) 08/18/18 12:10 Absolute Basos (auto) 0.01 10^3/uL (0.02-0.10) L 08/18/18 12:10 Absolute Nucleated RBC 0.00 10^3/uL (0-0.01) 08/18/18 12:10 Immature Gran % 0.2 % (0.0-1.1) 08/18/18 12:10 Immature Gran # 0.02 10^3/uL (0.00-0.10) 08/18/18 12:10 VBG Lactic Acid 1.0 mmol/L (0.7-2.1) 08/18/18 12:10 Sodium 138 mEq/L (135-145) 08/18/18 12:10 Potassium 4.5 mEq/L (3.5-5.2) 08/18/18 12:10 Chloride 108 mEq/L (97-110) 08/18/18 12:10 Carbon Dioxide 23 mEq/l (22-31) 08/18/18 12:10 Anion Gap 7 mEq/L (6-14) 08/18/18 12:10 BUN 9 mg/dL (7-23) 08/18/18 12:10 Creatinine 0.7 mg/dL (0.6-1.0) 08/18/18 12:10 Estimated GFR > 60 08/18/18 12:10 Glucose 110 mg/dL (70-100) H 08/18/18 12:10 Calcium 8.8 mg/dL (8.5-10.4) 08/18/18 12:10 Total Bilirubin 0.8 mg/dL (0.1-1.4) 08/18/18 12:10 Conjugated Bilirubin 0.4 mg/dL (0.0-0.5) 08/18/18 12:10 Unconjugated Bilirubin 0.4 mg/dL (0.0-1.1) 08/18/18 12:10 AST 42 IU/L (14-46) 08/18/18 12:10 ALT 23 IU/L (9-52) 08/18/18 12:10 Alkaline Phosphatase 52 IU/L (38-126) 08/18/18 12:10 Total Protein 7.8 g/dL (6.3-8.2) 08/18/18 12:10 Albumin 4.4 g/dL (3.5-5.0) 08/18/18 12:10 Lipase 37 IU/L (23-300) 08/18/18 12:10 Assessment & Plan Assessment: Small bowel obstruction (Acute) - Presented yesterday after sudden onset of epigastric pain - CT AP on 08/17 shows distended stomach and small bowel with reflux into at least the distal esophagus. Suspect early or partial small bowel obstruction, possibly related to an adhesion - Reports nausea, no vomiting, last BM yesterday AM, none since, still passing gas - Will manage conservatively with NPO, IVF - Will hold off on NGT due to lack of nausea at time of examination - If patient does not improve overnight, will consider surgical consult for further evaluation, no hx of abdominal surgeries Possible Basilar Interstitial Lung Disease - Noted on Abdominal CT yesterday - Reports no SOB, cough, SOTO - Will f/u with [facility] Chest as outpatient Hypothyroidism - Continue home Synthroid HLD - Continue home statin FEN: NPO, IVF DVT PPx: Lovenox Code: FULL Dispo: Admit to Observation
[2018-08-18] MEDS: ATORVASTATIN CALCIUM 20 MG TAB PO SCH ×2 (18:12→18:44)
--- NOTE | 2018-08-18 18:19 | PDMN ---
Medical Necessity Medical necessity: [facility] M210 Intestinal Obstruction, 2 days: 73 yo w/ acute SBO, conservative management for now, NPO, IVF. Surgical consult if no improvement. Meets [facility] IP criteria w/ partial SBO.
[2018-08-18] MEDS ORDERED: MELATONIN 3 MG TAB PO PRN (20:16)
[2018-08-19] MEDS: LEVOTHYROXINE 25 MCG TAB PO SCH (05:07)
[2018-08-19] MEDS: ENOXAPARIN 40 MG/0.4 ML SYR SC SCH (08:34)
[2018-08-19] MEDS ORDERED: NS 1,000 ML IV SCH (09:00)
--- NOTE | 2018-08-19 14:46 | ASMTCMCOM ---
CM Note CM Note Notes: Pt is a 73 y/o female admitted for abdominal pain. Therapies worked w/ pt and recommending home without any needs. CM available for changes. Plan: Independent Date Signed: 08/19/2018 02:45 PM Electronically Signed By:DONELL Stephens
--- NOTE | 2018-08-19 16:40 | HOSPPROG ---
Hospitalist Progress Note Assessment/Plan: Small bowel obstruction (Acute) - Presented after sudden onset of epigastric pain - CT AP on 08/17 shows distended stomach and small bowel with reflux into at least the distal esophagus. Suspect early or partial small bowel obstruction, possibly related to an adhesion - Reports nausea, no vomiting, last BM day prior to admission, none since, still passing gas - Will manage conservatively with IVF, advanced to CLD this AM, continue to ADAT - Will hold off on NGT due to lack of nausea at time of examination - If patient does not continue to improve, will consider surgical consult for further evaluation, no hx of abdominal surgeries Possible Basilar Interstitial Lung Disease - Noted on Abdominal CT yesterday - Reports no SOB, cough, SOTO - Will f/u with [facility]CT Chest as outpatient Hypothyroidism - Continue home Synthroid HLD - Continue home statin FEN: NPO, IVF DVT PPx: Lovenox Code: FULL Dispo: Pending clinical course Subjective: Patient reports no abdominal pain or nausea this AM Objective: Vital Signs Temp Pulse Resp BP Pulse Ox 36.6 C 57 L 18 131/65 H 93 08/19/18 15:18 08/19/18 15:18 08/19/18 15:18 08/19/18 15:18 08/19/18 15:18 08/18/18 08/19/18 08/20/18 05:59 05:59 05:59 Intake Total 1933 Output Total 600 600 Balance 1333 -600 - Physical Exam Constitutional: no apparent distress Eyes: PERRL Ears, Nose, Mouth, Throat: moist mucous membranes Cardiovascular: regular rate and rhythym Respiratory: no respiratory distress Gastrointestinal: soft, non-tender abdomen, distension Skin: warm Musculoskeletal: full muscle strength Neurologic: AAOx3 Psychiatric: interacting appropriately ICD10 Worksheet Patient Problems: Problems Problem Status Onset Small bowel obstruction Acute Wrist fracture Acute
[2018-08-19] MEDS: ATORVASTATIN CALCIUM 20 MG TAB PO SCH (17:51)
[2018-08-20] MEDS: LEVOTHYROXINE 25 MCG TAB PO SCH (06:18)
[2018-08-20 07:36] VITALS: BP 122/59
[2018-08-20] MEDS: ENOXAPARIN 40 MG/0.4 ML SYR SC SCH (08:27)
--- NOTE | 2018-08-20 19:34 | GDS ---
[f rep st] DISCHARGE SUMMARY CONSULTS: None applicable. PROCEDURES: CT abdomen and pelvis. FOLLOWUP: Primary care physician. HOSPITAL COURSE PROBLEM LIST: Small bowel obstruction. Patient was reporting increased abdominal pa in after a large meal with no BM. On admission, CT showed partial bowel obstruction. Patient was pl aced n.p.o. Patient refused NG tube. Patient had minimal nausea and vomiting. At time of admission , fluids were started. Diet was advanced to clears, which patient tolerated. Was advanced to regula r diet last evening. Tolerating well. Patient has been passing gas and had bowel movement this morn ing. Patient discharged in stable condition. Time spent on discharge was greater than 35 minutes, with greater than 50% of time spent on counselin g and patient education. /[id number]/MODL
== END 2018-08-20 09:49 | disposition home or self-care (01) | DRG 390 ==
LOC: F3E 13:06
PROVIDERS: ADMIT Internal Medicine; ATTEND Internal Medicine
DX: K56.51 Intestinal adhesions [bands], with partial obstruction (principal); H40.9 Unspecified glaucoma; E03.9 Hypothyroidism, unspecified; H26.9 Unspecified cataract; E78.5 Hyperlipidemia, unspecified; Z87.891 Personal history of nicotine dependence
CPT/HCPCS: 96374; 97116-GP; 97161-GP; 97165-GO; 97535-GO; J1650; J2405

== ENCOUNTER → 2018-09-02 | Outpatient (CLI) | payer OTHER, MEDICAID | LOC: BHFA 09:00 | PROVIDERS: ATTEND Internal Medicine Cardiovascular Disease | DX: I25.10 Atherosclerotic heart disease of native coronary artery without angina pectoris (principal) | CPT/HCPCS: 78452; 93017; A9500; J2785 ==

== ENCOUNTER → 2018-11-12 | Outpatient (CLI) | payer OTHER, MEDICAID | LOC: BRMIMAGING 08:34 ==